=== PATIENT | male | born 1945 | race Caucasian/White ===

== ENCOUNTER 2019-06-11 12:21 | Day surgery (SDC) | payer MEDICARE, SELFPAY ==
--- NOTE | 2019-06-09 21:26 | PCM.HP.BLA ---
History and Physical Date of Admission: 06/11/19 Luis Miguel Muller 1945 ? ? REFERRING PHYSICIAN: Maryan Workman MD ? CHIEF COMPLAINT: Consult ? HPI: The patient is a 73 year old male presents with unresectable duodenal cancer. He underwent surgery 04/27/19 - laparoscopic gastrojejunostomy and EUS. 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 He will be undergoing chemotherapy. He will require portacath for this. Denies history of fractures Denies history of deep venous thromboses. Denies bleeding tendencies Denies fevers ? ? PAST MEDICAL HISTORY ? Cancer (HCC) ? ? PAST SURGICAL HISTORY ? EGD ? ? ? PAST SURGICAL HISTORY OF ? 04/27/2019 ? laparoscopic gastrojejunostomy ? PICC LINE INSERT/CONSULT ? 04/26/2019 ? ? Current Outpatient Medications ? ondansetron (ZOFRAN) 8 mg tablet Take 1 tablet by mouth every 8 hours as needed. ? acetaminophen (TYLENOL) 325 mg tablet Take 2 tablets by mouth every 6 hours as needed for Pain (for pain.). ? pantoprazole DR (PROTONIX) 40 mg tablet Take 1 tablet by mouth once daily. ? metoprolol succinate ER (TOPROL XL) 25 mg 24 hr tablet Take 25 mg by mouth once daily. ? docusate sodium (COLACE) 100 mg capsule Take 1 capsule by mouth twice daily as needed for Constipation. ? ALLERGIES: Patient has no known allergies. ? PERSONAL HISTORY: Social History Tobacco Use ? Smoking status: Never Smoker ? Smokeless tobacco: Never Used Substance Use Topics ? Alcohol use: Not Currently ? Drug use: Never ? FAMILY HISTORY ? Heart disease Sister ? ? Heart disease Brother ? ? ? REVIEW OF SYSTEMS: General: The patient denies fatigue, notes weight loss, denies weight gain, denies feeling hot, and denies feelings of cold. Eyes: The patient denies glaucoma, denies eye injury/surgery, wears glasses or contacts. Ear/Nose/Throat: The patient notes allergies, denies hayfever, denies ear infections, and denies bloody noses. Cardiovascular: The patient denies chest pain, denies heart disease, denies high blood pressure,denies cardiac stent, denies prior heart attack, denies irregular heart beat, denies high cholesterol, denies poor circulation, denies heart failure, other cardiac issues, denies claudication, denies cold feet, denies peripheral arterial stent. Respiratory: The patient denies tuberculosis, denies pneumonia, denies frequent cough, denies pulmonary embolism, denies shortness of breath, and denies coughing up blood. Gastrointestinal: The patient denies difficulty swallowing, denies acid reflux, denies ulcers, denies vomiting, denies jaundice/hepatitis, denies gallbladder problems, denies black or tarry stools, denies hemorrhoids, denies bleeding from rectum, denies diverticulitis, denies constipation, denies diarrhea, denies loss of stool control, and denies hernias. Kidney/Bladder: The patient denies kidney stones, denies urine infections, and denies bloody urine. Skin: The patient denies a history of skin cancer, denies bleeding/changing moles, and notes a history of skin rash. Neurologic: The patient denies a history of epilepsy/convulsions, denies headaches, denies head/spinal injuries, and denies stroke/TIA. Psychiatric: The patient denies psychiatric medications, denies depression, and denies voices, denies substance abuse. Endocrine: The patient denies thyroid disorders, denies diabetes, and denies hormonal problems. Hematologic: The patient denies a history of bruising, denies bleeding, and denies anemia, denies blood clots. Infections: The patient notes a history of measles and mumps, notes rheumatic fever, and denies sexually transmitted diseases. Musculoskeletal: The patient denies back pain/injury, denies back problems, denies sciatica, denies knee/foot trouble, denies arthritis, or denies gout. ? PHYSICAL EXAMINATION: General: The patient is 73 year old male, well nourished, well hydrated in no acute distress. The patient is oriented to time, place, and person. VITALS: Blood pressure 120/64, pulse 87, temperature 36.3 ?C (97.4 ?F), temperature source Temporal Artery, height 167.5 cm (5' 5.95), weight 79.7 kg (175 lb 12.8 oz), SpO2 97 %. Body mass index is 28.42 kg/m?. Head ? Normocephalic. EOM intact with sclera clear and no icterus noted. Mouth with mucus membranes moist. Neck - supple with no jugular venous distention noted. Trachea is midline. No carotid bruits noted. Lungs ? clear to auscultation. Normal breath sounds. No rales/rhonchi/wheezing noted. No labored breathing noted, such as retractions. No cough heard. Heart ? normal S1 and S2 auscultated. No rubs/clicks/murmurs noted. Regular rate. Abdomen ? soft and benign. Normal bowel sounds Extremities ? no calf tenderness noted. No pitting edema noted. Skin ? normal skin integrity. Neurological ? gait normal, no focal deficits noted. Psych ? calm and appropriate ? ? IMPRESSION: need for IV access for chemotherapy for duodenal cancer ? PLAN: I have discussed the above with the patient and his and son. I have offered placement of portacath. I have explained the procedure to the patient. I have counseled the patient as to the risks of the procedure, including but not limited to: infection, bleeding, injury to any blood vessels/nerves, scar tissue, injury to the lungs such as hemothorax and/or pneumothorax, thrombosis of catheter vessel, line infection, non functioning of port, wound infections, complications of anesthesia, etc. ? the patient understands. The patient wishes to proceed. I have answered all questions to the patient?s satisfaction and the patient has no further questions. ? Diagnoses: (C17.0) Duodenal cancer (HCC) (primary encounter diagnosis) (Z45.2) Encounter for insertion of venous access port Return to Clinic: The patient is instructed to follow-up with me after the procedure
[2019-06-09] MEDS: Lactated Ringers 1,000 ML 75 ML IV (21:30)
[2019-06-11] VITALS (7 sets, daily range): BP systolic 128–133; BP diastolic 63–72; PULSE 63–73; RESP 15–16; TEMP 36.1–36.4; O2SAT 62–100; BMI 26.1
[2019-06-11] MEDS: Lactated Ringers 1,000 ML 75 ML IV (13:04)
[2019-06-11] MEDS: Cefazolin 2 GM in 0.9% Normal Saline 100 ML IV (13:55)
--- NOTE | 2019-06-11 14:02 | PCM.DC.POR ---
Discharge Diet: No Restrictions Discharge Activity: Return to Normal Activity, May not drive while taking narcotic pain medications. Call your doctor if your incision/area has: Continuous Slow Oozing, Foul Smelling Discharge Additional Dressing/Incision Instructions:: leave dressing in place. May get wet in shower. Do not soak - no tub baths/swimming. apply ice to area as tolerate - you will have bruising in the area Allergies/Adverse Reactions: Allergies No Known Allergies Allergy (Verified 06/11/19 12:41) Medications to take at Discharge Metoprolol Tartrate [Lopressor (Beta Chris)] 25 mg PO DAILY 06/08/19 Oxycodone [Oxyir] 5 mg PO Q6H PRN PRN 06/08/19 Pantoprazole Sodium [Protonix] 40 mg PO DAILY 06/08/19 Hydrocodone/Acetaminophen [Mccamey 5-325 Tablet] 1 each PO Q8H PRN PRN 5 Days #15 tablet 06/11/19 The following prescriptions were given: Hydrocodone/Acetaminophen [Mccamey 5-325 Tablet] 1 each PO Q8H PRN PRN 5 Days #15 tablet PRN Reason: Pain Score 4-10/10 Transmission Status: Received by [id number] Primary Care Physician: Pete Walden [Primary Care Provider] - Test Results: Test results from this visit will be discussed in further detail at your follow-up appointment, if applicable. Please Follow Up With: Lissett Rangel MD - call When: as per needed, if any problems, please call
--- NOTE | 2019-06-11 15:09 | OP.PCM_ITS ---
Report of Operation Date of Procedure: 06/11/19 Pre-Operative Diagnosis: duodenal cancer, need for IV chemotherapy, need for IV access Post-Operative Diagnosis: same as above Surgery/Procedure Performed:: placement of permanent tunnelled indwelling catheter in left internal jugular vein with subcutaneous port Description of Surgical Findings:: continued oozing at left subclavian site was concerning and therefore this port site was aborted and access to left internal jugular vein was obtained Type of Anesthesia:: Local MAC Anesthesiologist: Ti Gabriel Specimen's removed: none Estimated Blood Loss (mL): 10 ml Fluids Replaced: 800 ml RL Description of Procedure: After informed consent was given, the patient was brought to the Operating Room. Appropriate time out protocol was followed. He was then placed in the supine position. He was then given IV conscious sedation for anesthesia. The patient?s upper chest and neck were then prepped with a surgical skin preparation and sterile surgical drapes were placed. After proper landmarks were ascertained, the skin at the upper left chest area was then infiltrated with 1% xylocaine with epinephrine. A needle trocar was then inserted into the left subclavian vein and there was good aspiration of venous blood. A wire was then threaded into the needle trocar and this was visualized under fluoroscopy to ensure that the wire was in the left subclavian vein and directed into the SVC. However, despite prolonged pressure applied to the needle insertion site, there was continued bleeding at this site that was not normal. Therefore this site was aborted and the wire was removed from the left subclavian vein. Therefore the left internal jugular vein site was approached. The skin of the left neck was then infiltrated with 1% xylocaine with epinephrine. A needle trocar was then inserted into the left internal jugular vein and there was good aspiration of venous blood. A wire was then threaded into the needle trocar and this was visualized under fluoroscopy to ensure that the wire was in the left internal jugular vein and directed to the SVC. Once this was done, then the needle trocar was removed. A small skin fradny was made with an 11 blade knife at the wire entrance site. There was no unusual bleeding at this site. The dilator with the introducer sheath attached was then placed over the wire into the left internal jugular vein via the Seldinger technique and this was visualized under fluoroscopy. The dilator and sheath were in proper position as visualized by fluoroscopy. The wire and dilator were then removed. The catheter was then threaded into the introducer sheath and was positioned with its tip at the junction of the superior vena cava and the right atrium as visualized under fluoroscopy. The catheter was flushed with a heparin saline mixture prior to placement. A subcutaneous pocket was then created caudad to the catheter insertion site. A transverse skin incision was made after the skin and subcutaneous tissues were infiltrated with local anesthetic. Blunt dissection was then used to create a space large enough for placement of the subcutaneous port. Hemostasis was carefully controlled with electrocautery. The port was sutured to the subcutaneous fascia using vicryl suture at three sites. The catheter was then tunneled into the subcutaneous pocket. The excess catheter was transected. The catheter was then attached to the subcutaneous port using outreach manager?s guidelines. The port was then placed in the subcutaneous pocket and the sutures were ligated. The subdermal incisional sites were reapproximated with interrupted vicryl suture. The skin was reapproximated with monocryl suture in a subcuticular fashion. Cavilon and steristrips were used for reinforcement of the skin closure and a sterile opsite dressing was applied. The patient was brought to the Recovery Room in stable condition. Grafts/Implants Used: [employer]Port MRI Lot [id number] 2020-11-14 - Complications none noted - Admit VTE Documentation VTE Present on Admission: Yes VTE Mechan Device Prophylaxis: SCD's
--- NOTE | 2019-06-11 15:12 | RAD_ITS ---
STUDY: X-RAY CHEST REASON FOR EXAM: Male, 73 years old. TECHNIQUE: COMPARISON: None. FINDINGS: The lungs are clear and expanded. There is no demonstrated pleural abnormality. Normal size heart. Normal mediastinum and doc. Normal visualized pulmonary arteries. Normal visualized aortic arch and descending thoracic aorta. Normal visualized thoracic spine. Normal visualized ribs, clavicles, and shoulders. There is no demonstrated abnormality of the visualized soft tissue structures of the upper abdomen. A potacath noted on the left side with the tip in the superior vena cava close to the right atrium. RAD/CXR for Line Placement IMPRESSION: Normal x-ray examination of the chest. Electronically Signed: Girish Phillips, at 15:53 EST Tel , Service support ,
== END 2019-06-11 16:45 | disposition home or self-care (01) ==
LOC: SDC 12:26 → AC 12:27
PROVIDERS: Family Provider Internal Medicine; PCP Internal Medicine; Referring Provider Surgery; Visit Provider Surgery
PROC: (CPT 36561; principal; 2019-06-11 14:00)
DX: Z45.2 Encounter for adjustment and management of vascular access device (principal); C17.0 Malignant neoplasm of duodenum; I10 Essential (primary) hypertension; Z85.038 Personal history of other malignant neoplasm of large intestine; Z90.49 Acquired absence of other specified parts of digestive tract; Z79.899 Other long term (current) drug therapy
CPT/HCPCS: 36561; 71045; 77001; J7120; C1788

== ENCOUNTER → 2019-12-17 07:43 | Outpatient (CLI) | payer MEDICARE, SELFPAY ==
[2019-06-11 12:44] VITALS: BMI 26.1
--- NOTE | 2019-12-17 08:00 | PET_ITS ---
EXAMINATION: FDG PET-CT INDICATIONS: A 74-year-old male with history of duodenal carcinoma presenting for restaging examination. COMPARISON EXAMINATION: None available INDEX LESION SIZE SUV INTERPRETATION Upper abdomen, first portion of duodenum 30.2 x 27.5-mm (frame 131) 7.0 Fulfills quantitative criteria for viable neoplasm Upper abdominal retroperitoneum (n=2) soft tissue lymph nodes 11.9-mm (largest) (frame 123) 3.4 (max) Fulfills quantitative criteria for viable neoplasm Right lower anterior lung, right middle lobe 9.3-mm (frame 169) 0.9 Quantitative criteria for viable neoplasm are not fulfilled, sequential radiologic investigation recommended NON-INDEX LESION SIZE SUV INTERPRETATION Mediastinum, bilateral thoracic perihilum 2.7 (max) Quantitative criteria for viable neoplasm are not fulfilled TECHNIQUE: Following the intravenous administration of 15.1 mCi of F-18 deoxyglucose via the left antecubital fossa, multiplanar image acquisitions of the neck, chest, abdomen and pelvis to level of mid thigh, obtained at one hour post radiopharmaceutical administration contemporaneously interpreted with the current CT of the neck, chest, abdomen and pelvis, to level of mid thigh, dated 12/17/2019 via coregistration reveals: BLOOD GLUCOSE LEVEL:?? 96 mg/dl?HEIGHT:?68 inches?WEIGHT: 140 lbs. FINDINGS: 1. There is an increase in glucose metabolism identified in the right upper paramedian abdomen contiguous to the region of the first portion of the duodenum-gastric antrum associated with soft tissue thickening. The calculated maximal standard uptake value is 7.0. The maximal axial diameter of the corresponding metabolic abnormality on review of CT of the abdomen dated 12/17/2019 is 30.2-mm (transverse) x 27.5-mm (AP). 2. Focal increased FDG distribution is noted in the mid abdominal retroperitoneum generating a calculated maximal standard uptake value of 3.4. The maximal axial diameter of the corresponding metabolic, morphologic abnormality on review of CT of the abdomen dated 12/17/2019 is 11.9-mm (transverse). 3. Mild increased tracer uptake is noted in the carinal, subcarinal mediastinum and left and right thoracic perihilum generating a calculated maximal standard uptake value of 2.7. Quantitative criteria for viable neoplasm are not fulfilled. 4. Subtle increased tracer uptake is defined in the right lower anterior lung-right middle lobe generating a calculated maximal standard uptake value of 0.9. The largest corresponding metabolic, morphologic abnormality on review of CT of the abdomen dated 12/17/2019 is 9.3-mm. 5. Normal physiologic distribution of the radiopharmaceutical is apparent in the hepatic (2.3) and splenic parenchyma, both renal units, bladder and visualized intestinal tract. The visualized portion of the cerebral cortex demonstrate symmetric and preserved glucose metabolism. Diffuse radiopharmaceutical concentration is noted in all four quadrants of the abdomen and pelvis. Pertinent CT findings are as follows: CHEST: Дмитрий-cath placement is noted. There is atherosclerotic calcification defined in the thoracic aorta without evidence of dilatation-aneurysm formation. Coronary arterial calcification is observed. Bilateral axillary soft tissue densities with fatty hilus are non-glucose avid. There are no additional parenchymal densities-nodules defined in the right and left hemithorax demonstrating discernible quantitatively significant increased FDG PET study concentration. Additional subcentimeter parenchymal densities reveal no evidence of discernible increased FDG uptake. ABDOMEN AND PELVIS: The gallbladder is surgically absent. There is atherosclerotic calcification defined in the abdominal aorta without evidence of dilatation-aneurysm formation. Pelvic arterial calcification is observed. A fat containing left inguinal hernia is noted. Bilateral inguinal soft tissue densities with fatty hilus are non-glucose avid. Exophytic cyst formation is multifocally apparent in both renal units. SKELETAL: Degenerative changes are noted in the cervical, thoracic and lumbar spine. There is diffuse demineralization identified throughout the axial skeletal structures. PET/PET/CT Tumor Base -Thigh Init IMPRESSION: 1. Increased radiopharmaceutical concentration observed in the upper abdomen in the region of the first portion of the duodenum fulfills quantitative criteria for viable neoplasm. 2. Facilitated radiopharmaceutical concentration noted in the upper abdominal retroperitoneum corresponding to soft tissue nodularity-lymph node fulfills quantitative criteria for viable metastatic involvement. 3. The mediastinal, bilateral thoracic perihilar, as well as right lower anterior lung hypermetabolic abnormalities do not fulfill quantitative criteria for malignant transformation. (Alycia et al, Journal of Clinical Oncology 16:2142, 1998 Lewis et al, Annals of Internal Medicine, 138:724, 2003). 4. Metabolic and/or anatomic stability may be ensured in the right lower anterior lung-right middle lobe parenchymal density and mediastinal structures, with repeat FDG PET study and/or CT of the thorax in three months. (Xiu, Journal of Nuclear Medicine 45:88, P2004 [place], Seminars in Thoracic and Cardiovascular Surgery 14:292, 2002). Electronic Signature Omar Cruz D.O. Electronically Signed: Omar Cruz DO at 21:55 EDT Tel , Service support ,
== END ==
PROVIDERS: PCP Internal Medicine; Referring Provider Internal Medicine Hematology & Oncology; Visit Provider Internal Medicine Hematology & Oncology
DX: C7A.010 Malignant carcinoid tumor of the duodenum (principal)
CPT/HCPCS: 78815; A9552